=== PATIENT | female | born 1980 | race American Indian/Alaskan Native ===

== ENCOUNTER 2018-07-26 23:42 | Emergency (ER) | payer OTHER ==
[2018-07-27 00:17] VITALS: BP 130/92
[2018-07-27] MEDS ORDERED: TYLENOL ONE (00:29)
[2018-07-27] MEDS ORDERED: TYLENOL PO ONE (00:32)
--- NOTE | 2018-07-27 01:24 | XRay Report ---
FINAL REPORT EXAM: XR KNEE 3V LT HISTORY: left knee pain COMPARISON: None available. FINDINGS: Three views of the left knee obtained. Bony structures are intact. Joint spaces are preserved. No ac asa'[place] fracture dislocation. IMPRESSION: No acute bony abnormality.
--- NOTE | 2018-07-27 01:25 | XRay Report ---
FINAL REPORT EXAM: XR SPINE LUMBOSACRAL 2-3V HISTORY: lower back pain COMPARISON: None available. FINDINGS: Three views of the lumbar spine obtained. Lumbar vertebral body heights and disc heights are preserve d. Pedicles are intact. No spondylolisthesis. Minimal dextroconvex curvature of the thoracolumbar alexis ction. IMPRESSION: Lumbar vertebral body heights and disc heights are preserved. Minimal scoliotic curvature.
--- NOTE | 2018-07-27 01:25 | XRay Report ---
FINAL REPORT EXAM: XR HAND 2V RT HISTORY: right hand pain COMPARISON: None available. FINDINGS: Three total images of right hand obtained. Bony structures are intact. Joint spaces are preserved. N o acute fracture dislocation. IMPRESSION: No acute bony abnormality.
--- NOTE | 2018-07-27 01:26 | XRay Report ---
FINAL REPORT EXAM: XR SPINE CERVICAL 2-3V HISTORY: neck pain COMPARISON: None available. FINDINGS: Three views of the cervical spine obtained. There is straightening of the normal lordotic curvature w hich may relate to patient positioning or muscle spasm. Minimal loss of disc height endplate osteophy te C5-C6 level. Odontoid process grossly intact. Remaining disc heights are preserved. IMPRESSION: There is straightening of the normal lordotic curvature which may relate to patient positioning or mu scle spasm. Minimal focal degenerative changes C5-C6 level.
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
[2018-07-27] MEDS ORDERED: NORCO 5/325 PO STA (02:26)
== END 2018-07-27 02:56 | disposition home or self-care (01) ==
LOC: ED 23:42
DX: S80.02XA Contusion of left knee, initial encounter (principal); M62.838 Other muscle spasm; F17.200 Nicotine dependence, unspecified, uncomplicated; Z98.51 Tubal ligation status; E05.00 Thyrotoxicosis with diffuse goiter without thyrotoxic crisis or storm; Z79.899 Other long term (current) drug therapy; V49.49XA Driver injured in collision with other motor vehicles in traffic accident, initial encounter; Y93.89 Activity, other specified; Y99.8 Other external cause status; Y92.410 Unspecified street and highway as the place of occurrence of the external cause
CPT/HCPCS: 72040; 72100

== ENCOUNTER 2019-02-24 13:12 | Emergency (ER) | payer OTHER ==
[2019-02-24 13:32] VITALS: BP 128/94
--- NOTE | 2019-02-24 13:34 | Event Note ---
ED Screening Note Date of service: 02/24/19 Time: 13:31 ED Screening Note: This is a 38 y.o. F. that presents to the ER with recent exposure to chlamydia. Patient states partner received STD results yesterday with positive diagnosis. Patient denies symptoms. Admits to recent exposure. This initial assessment/diagnostic orders/clinical plan/treatment(s) is/are subject to change based on patients health status, clinical progression and re- assessment by fellow clinical providers in the ED. Further treatment and workup at subsequent clinical providers discretion. Patient/guardian urged not to elope from the ED as their condition may be serious if not clinically assessed and managed. Initial orders include: Labs
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
== END 2019-02-24 14:35 | disposition left against medical advice (07) ==
LOC: ED 13:12
DX: Z20.2 Contact with and (suspected) exposure to infections with a predominantly sexual mode of transmission (principal)

== ENCOUNTER 2021-02-10 15:12 | Emergency (ER) | payer OTHER | END 2021-02-10 15:17 | disposition left against medical advice (07) | LOC: ED 15:12 | DX: R58 Hemorrhage, not elsewhere classified (principal); Z53.21 Procedure and treatment not carried out due to patient leaving prior to being seen by health care provider ==